=== PATIENT | male | born 1970 | race Caucasian/White ===

== ENCOUNTER 2016-05-14 21:17 | Emergency (ER) | payer OTHER ==
[~2016-05-14] VITALS: Ht 180.3 cm; Wt 79.0 kg
[2016-05-14 21:20] VITALS: BP 132/73; PULSE 82; RESP 16; TEMP 98; O2SAT 100
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
[2016-05-14] MEDS ORDERED: MORPHINE SULFATE 4 MG/ML INJ IV PUSH ONE (21:45)
[2016-05-14] MEDS ORDERED: LIDOCAINE 1%/EPINEPHrine 1:100,000 SOLN 20 ML VIAL INFIL ONE (21:45)
[2016-05-14] MEDS ORDERED: TETANUS/DIPHTHERIA TOXOID ADULT 0.5 ML VIAL IM ONE (21:45)
[2016-05-14] MEDS ORDERED: SODIUM CHLORIDE 0.9% FLUSH 5 ML FLUSH IVF PRN (21:45)
[2016-05-14] MEDS ORDERED: ONDANSETRON HCL 4 MG/2 ML VIAL IVP ONE (21:45)
[2016-05-14 21:50] VITALS: RESP 18; O2SAT 100
[2016-05-14] MEDS ORDERED: OMEP20TA PO (21:52)
[2016-05-14] MEDS ORDERED: DILT1TAB2 PO (21:52)
[2016-05-14] MEDS ORDERED: ATOR20TA15 PO (21:52)
[2016-05-14 22:08] LABS: AUTOMATED NEUTROPHIL # 6.1 TH/MM3 (1.8-7.7); BASOPHIL % 0.4 % (0.0-2.0); EOSINOPHIL # 0.2 TH/MM3 (0-0.4); EOSINOPHIL % 1.8 % (0.0-4.0); HEMATOCRIT 42.7 % (39.0-51.0); HEMO FLAGS DIFF FINAL; LYMPH % 27.6 % (9.0-44.0); LYMPHOCYTE # 2.7 TH/MM3 (1.0-4.8); MEAN CELL VOLUME 81.7 FL (80.0-100.0); MEAN CORPUSCULAR HGB CONC 35.5 % (32.0-36.0); NEUT % 63.2 % (16.0-70.0); PLATELET COUNT 229 TH/MM3 (150-450); RED BLOOD COUNT 5.23 MIL/MM3 (4.50-5.90); RED CELL DISTRIBUTION WIDTH 14.1 % (11.6-17.2); WHITE BLOOD COUNT 9.6 TH/MM3 (4.0-11.0)
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
[2016-05-14 22:26] LABS: APTT (PATIENT) 23.1 SEC (24.3-30.1); PROTHROMBIN TIME - PATIENT 11.1 SEC (9.8-11.6)
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
[2016-05-14 22:32] VITALS: BP 124/70; PULSE 83; RESP 18; O2SAT 94
[2016-05-14 22:41] LABS: BICARBONATE 22.9 MEQ/L (21.0-32.0)
[2016-05-14 23:06] LABS: POTASSIUM 3.6 MEQ/L (3.5-5.1)
[2016-05-14] MEDS ORDERED: AUGM875T PO (23:37)
[2016-05-14] MEDS ORDERED: HYDR-3533 PO (23:37)
[2016-05-14] MEDS ORDERED: ACETAMINOPHEN/HYDROcodone 325 MG/5 MG TAB PO ONE (23:45)
[2016-05-14 23:47] VITALS: BP 126/74
== END 2016-05-15 00:06 | disposition home or self-care (01) ==
LOC: NEPE 21:17
DX: S02.40FA Zygomatic fracture, left side, initial encounter for closed fracture (principal); S02.82XA Fracture of other specified skull and facial bones, left side, initial encounter for closed fracture; S02.609A Fracture of mandible, unspecified, initial encounter for closed fracture; S01.511A Laceration without foreign body of lip, initial encounter; V19.9XXA Pedal cyclist (driver) (passenger) injured in unspecified traffic accident, initial encounter; Y93.55 Activity, bike riding; Z23 Encounter for immunization
CPT/HCPCS: 12014; 70450; 70486; 72125; 73564; 80048; 85025; 85610; 85730; 90471; 90714; 96374; 96375; 99284; J2270; J2405